=== PATIENT | female | born 1945 | race American Indian/Alaskan Native ===

== ENCOUNTER 2021-02-02 12:40 | Inpatient (IN) | payer MEDICARE, MEDICAID ==
[2021-02-02] MEDS ORDERED: Ondansetron 4 MG Tab.DIS PO PRN (13:22)
[2021-02-02] MEDS ORDERED: Sodium Chloride 0.9% 10 ML Syringe FLUSH PRN (13:22)
[2021-02-02] MEDS ORDERED: Ondansetron 4 MG/2 ML SDV IV PRN (13:22)
[2021-02-02] MEDS ORDERED: Acetaminophen 325 MG Tab PO PRN ×2 (13:22→15:23)
[2021-02-02] MEDS ORDERED: cefTRIAXone 1 GM Vial IVPUSH SCH (14:00)
[2021-02-02] MEDS: Albuterol/Ipratropium 3.0-0.5 MG/3 ML Neb Soln NEB SCH ×3 (14:05→19:35)
[2021-02-02] MEDS: Azithromycin 250 MG Tab PO SCH (14:18)
[2021-02-02] MEDS ORDERED: Albuterol 8 GM Inhaler INH PRN (15:23)
[2021-02-02] MEDS: atorvaSTATin 20 MG Tab PO SCH (19:35)
[2021-02-02] MEDS: Enoxaparin 40 MG/0.4 ML Syringe SUBCUT SCH (19:35)
[2021-02-02] MEDS: methylPREDNISolone Sodium Succinate 125 MG/2 ML SDV IVPUSH SCH (19:35)
[2021-02-03 07:23] LABS: CHLORIDE,CL 107 mEq/L (98-106); SODIUM,NA 144 mEq/L (136-145)
[2021-02-03] MEDS: Albuterol/Ipratropium 3.0-0.5 MG/3 ML Neb Soln NEB SCH ×4 (07:45→20:02)
[2021-02-03] MEDS: methylPREDNISolone Sodium Succinate 125 MG/2 ML SDV IVPUSH SCH ×2 (07:49→20:03)
[2021-02-03] MEDS: Tiotropium Inhaler 18 MCG Inhalation Powder Cap Kit of 5 INH SCH (07:53)
[2021-02-03] MEDS: PARoxetine 20 MG Tab PO SCH (07:54)
[2021-02-03] MEDS: Aspirin 81 MG Tab.EC PO SCH (07:54)
[2021-02-03] MEDS: Lisinopril 5 MG Tab PO SCH (07:54)
[2021-02-03] MEDS: Metoprolol Succinate 25 MG Tab.ER PO SCH (07:54)
[2021-02-03] MEDS: Azithromycin 250 MG Tab PO SCH (07:54)
[2021-02-03] MEDS ORDERED: Azithromycin 250 MG Tab PO SCH (12:00)
[2021-02-03] MEDS ORDERED: cefTRIAXone 1 GM Vial IVPUSH SCH (12:00)
--- NOTE | 2021-02-03 12:54 | PN ---
DATE: 02/03/2021 S: Ms. Franco is a 75-year-old from the [place] emergency room, who was admitted here because hospital was full. She has a known COPD and is a prior smoker. She was admitted for COPD exacerbation. Since admission, she is feeling much better. She was started on appropriate cares including nebulizer therapy, steroids, and IV antibiotics. She has not spiked any temps. Other than being slightly tachycardic, she looks better. Her O2 is turned down from 4 to 3 L nasal cannula, which is what she is on home chronically. At this time, she is on DuoNebs 4 times a day, Rocephin and Zithromax and IV methylprednisolone. O: GENERAL: The patient is pleasant and cooperative. She does not appear in any respiratory distress. HEENT: Grossly benign. Nasal cannula on. NECK: Veins are nondistended. LUNGS: Sounds are diminished. There is some expiratory wheeze mostly in the apices, but no rales or rhonchi heard. CARDIAC: Tones are regular. ABDOMEN: Soft. EXTREMITIES: She has no peripheral edema. ASSESSMENT: 1. CHRONIC OBSTRUCTIVE PULMONARY DISEASE EXACERBATION. 2. HYPERTENSION, CONTROLLED. 3. HYPERLIPIDEMIA. 4. DEPRESSION. P: We will continue with all current cares. If she continues to do well and gets back to baseline even tomorrow, she should be ready for discharge. KENTRELL /[id number]
[2021-02-03] MEDS: atorvaSTATin 20 MG Tab PO SCH (20:02)
[2021-02-03] MEDS: Enoxaparin 40 MG/0.4 ML Syringe SUBCUT SCH (20:02)
[2021-02-04] MEDS: methylPREDNISolone Sodium Succinate 125 MG/2 ML SDV IVPUSH SCH (07:26)
[2021-02-04] MEDS: Aspirin 81 MG Tab.EC PO SCH (07:27)
[2021-02-04] MEDS: Lisinopril 5 MG Tab PO SCH (07:27)
[2021-02-04] MEDS: PARoxetine 20 MG Tab PO SCH (07:27)
[2021-02-04] MEDS: Albuterol/Ipratropium 3.0-0.5 MG/3 ML Neb Soln NEB SCH (07:27)
[2021-02-04] MEDS: Metoprolol Succinate 25 MG Tab.ER PO SCH (07:27)
[2021-02-04] MEDS: Tiotropium Inhaler 18 MCG Inhalation Powder Cap Kit of 5 INH SCH (07:28)
[2021-02-04] MEDS ORDERED: Azithromycin 250 MG Tab PO SCH (08:00)
[2021-02-04] MEDS ORDERED: cefTRIAXone 1 GM Vial IVPUSH SCH (10:00)
--- NOTE | 2021-02-04 10:41 | DISCH ---
ADMISSION DIAGNOSES: 1. Chronic obstructive pulmonary disease exacerbation. 2. Hypertension. 3. Hyperlipidemia. 4. Depression. DISCHARGE DIAGNOSIS: 1. CHRONIC OBSTRUCTIVE PULMONARY DISEASE EXACERBATION. 2. HYPERTENSION. 3. HYPERLIPIDEMIA. 4. DEPRESSION. HISTORY: The patient is a female from the [place] area who was in [place] [facility]. She has known COPD and presented to them with typical exacerbation with increasing shortness of breath, cough, and wheezing. She was evaluated in their emergency room, felt to be a candidate for admission. However, due to there hospital being to capacity, they transferred to [place] for admit. She had a chest x-ray, which did not show any obvious infiltrates. At the time of her admission, her white count was normal. Her CRP was less than 0.2. HOSPITAL COURSE: The patient was admitted; started on IV Solu-Medrol, Rocephin, and Zithromax. She has done very well. She is back to her baseline at 3 L of nasal cannula. She is an O2 dependent patient. Her saturations are in the 93% to 96%. She did not spike a temperature while here. She is not producing any productive sputum, and for the most part, she feels like her status is back to her baseline. She has not had any trouble getting up and ambulating and for the most part is ready for discharge. We are going to send her home on further 7 days of Ceftin. She got 3 days of Zithromax and Rocephin in our facility. She will go home on 4 more days of outpatient oral prednisone and recommended to follow up with her primary provider in a week or 2 in [place] at [facility]. COMPLICATIONS: During her stay were none. CONSULTATIONS: None. DISPOSITION: Discharged home. KENTRELL /[id number]
--- NOTE | 2021-02-04 11:54 | DISCH ---
ADDENDUM: Ms. Franco will be going home with home health. She needs continuous monitoring of O2 saturations, medication adjustments, vital sign monitoring, and weights per home health nursing. SVETLANA/AUTUMN /[id number]
== END 2021-02-04 10:40 | disposition home or self-care (01) | DRG 190 ==
LOC: CC.MS 13:21 → UNDOADMIN 13:21 → CC.MS 13:22
PROVIDERS: ADMIT Physician Assistant Medical; ATTEND Family Medicine
DX: J44.0 Chronic obstructive pulmonary disease with (acute) lower respiratory infection (principal); J18.9 Pneumonia, unspecified organism; J44.1 Chronic obstructive pulmonary disease with (acute) exacerbation; I10 Essential (primary) hypertension; E78.5 Hyperlipidemia, unspecified; F32.A Depression, unspecified; H91.90 Unspecified hearing loss, unspecified ear; H54.7 Unspecified visual loss; M19.90 Unspecified osteoarthritis, unspecified site; Z88.1 Allergy status to other antibiotic agents; Z79.899 Other long term (current) drug therapy; Z79.82 Long term (current) use of aspirin; I25.2 Old myocardial infarction; Z99.81 Dependence on supplemental oxygen; Z90.49 Acquired absence of other specified parts of digestive tract
CPT/HCPCS: 36415; 80048; 85025; 86140; 94640; A9270-GY; J0696; J1650; J2930; J7620-GY